=== PATIENT | male | born 1960 | race Caucasian/White ===

== ENCOUNTER 2022-08-18 05:54 | Day surgery (SDC) | payer BC ==
[2022-08-18] MEDS ORDERED: Propofol 200 MG/20 ML SDV IV ONE (05:55)
[2022-08-18] MEDS ORDERED: Sodium Chloride 0.9% 10 ML Syringe FLUSH PRN (06:15)
[2022-08-18] MEDS ORDERED: Lactated Ringers 1,000 ML IV SCH (06:15)
[2022-08-18] MEDS ORDERED: Simethicone Drops 40 MG/0.6 ML 30 ML Bottle ONE (07:27)
== END 2022-08-18 08:47 | disposition home or self-care (01) ==
LOC: FB.SDS 05:54
PROVIDERS: ATTEND Surgery
DX: Z12.11 Encounter for screening for malignant neoplasm of colon (principal); K57.30 Diverticulosis of large intestine without perforation or abscess without bleeding; I25.10 Atherosclerotic heart disease of native coronary artery without angina pectoris; E78.5 Hyperlipidemia, unspecified; I10 Essential (primary) hypertension; Z79.899 Other long term (current) drug therapy
CPT/HCPCS: 00812; A9270-GY; J2704; J7120